=== PATIENT | female | born 1985 | race Caucasian/White ===

== ENCOUNTER 2019-03-11 16:24 | Observation (INO) ==
[~2019-03-11 16:24] MED LIST: LIDOCAINE W/ SODIUM BICARB 0.5 ML SYR SUBD PRN; Lactated Ringers 1,000 ML PRIMARY IV SCH; Nasal Sanitizer POPSWAB ampule 3 AMP (Nozin) PREOP DOSE ENOS SCH
[2019-03-11] MEDS ORDERED: Lactated Ringers 1,000 ML PRIMARY IV ONE (16:32)
[2019-03-11] MEDS ORDERED: LIDOCAINE W/ SODIUM BICARB 0.5 ML SYR ONE (16:33)
[2019-03-11] MEDS ORDERED: PROPOFOL 10 MG/1 ML (200 MG/20 ML) VIAL IV ONE (18:55)
[2019-03-11] MEDS: fentaNYL Inj 100 MCG/2 ML VIAL IVP PRN ×2 (19:51→20:12)
[2019-03-11] MEDS ORDERED: ONDANSETRON 4 MG/2 ML VIAL IVP ONE (20:25)
[2019-03-11] MEDS ORDERED: ACETAMINOPHEN 325 MG TABLET PO PRN (20:58)
[2019-03-11] MEDS ORDERED: CALCIUM CARBONATE 500 MG (TUMS) CHEWABLE TABLET PO PRN (20:58)
[2019-03-11] MEDS ORDERED: Prochlorperazine Tab 10 MG TAB PO PRN (20:58)
[2019-03-11] MEDS ORDERED: MAG HYDROX/AL HYDROX/SIMETH 30 ML SUSP PO PRN (20:58)
[2019-03-11] MEDS ORDERED: BISACODYL 10 MG SUPPOSITORY RECTAL PRN (20:58)
[2019-03-11] MEDS ORDERED: D5-1/2NS + 20mEq KCL 1,000 ML PRIMARY IV SCH (20:58)
[2019-03-11] MEDS ORDERED: MORPHINE SULFATE 2 MG/1 ML IVP PRN (20:58)
[2019-03-11] MEDS ORDERED: IBUPROFEN 400 MG TABLET PO PRN (20:58)
[2019-03-11] MEDS ORDERED: diphenhydrAMINE 25 MG CAPSULE PO PRN (20:58)
[2019-03-11] MEDS ORDERED: ONDANSETRON 4 MG/2 ML VIAL IVP PRN (20:58)
[2019-03-11] MEDS ORDERED: Ondansetron ODT Tab 8 MG TAB PO PRN (20:58)
[2019-03-11] MEDS ORDERED: BISACODYL 5 MG TABLET PO PRN (20:58)
[2019-03-11] MEDS ORDERED: LEVALBUTEROL HCL 1.25 MG/3 ML NEB PRN (21:08)
[2019-03-11 21:16] LABS: BASOPHILS # (AUTO) 0.01 10*3/UL; BASOPHILS % (AUTO) 0.1 % (0-1); EOSINOPHILS # (AUTO) 0.15 10*3/UL; EOSINOPHILS % (AUTO) 1.2 % (0-8); Hematocrit [HCT] 40.9 % (37.0-47.0); Hemoglobin [HGB] 13.3 g/dL (12.0-16.0); MEAN CORPUSCULAR HGB CONC 32.5 g/dL (33-37); MEAN CORPUSCULAR VOLUME 89.5 FL (81-99); MEAN PLATELET VOLUME 9.1 FL (7.4-12.2); MONOCYTES # (AUTO) 0.39 10*3/UL (0.3-0.8); NEUTROPHILS # (AUTO) 9.93 10*3/UL; RED BLOOD COUNT 4.57 10^6/uL (4.20-5.40)
[2019-03-11 21:17] LABS: PLATELET MORPHOLOGY COMMENT NORMAL MORPHOLOGY (NORM); RBC MORPHOLOGY COMMENT NORMAL MORPHOLOGY (NORM); WBC MORPHOLOGY COMMENT NORMAL MORPHOLOGY (NORM)
[2019-03-11 21:26] LABS: BLOOD UREA NITROGEN 8 mg/dL (7-22); BUN/CREATININE RATIO 11.42 (6-20)
[2019-03-11] MEDS ORDERED: MORPHINE SULFATE 4 MG/1 ML IVP PRN (21:26)
[2019-03-11] MEDS ORDERED: Ertapenem Inj 1 GM in Sodium Chloride 0.9% 100 ML IV SCH (21:30)
[2019-03-11] MEDS: HYDROcodone-APAP 7.5 MG-325 MG TABLET PO PRN (21:44)
[2019-03-12] MEDS: HYDROcodone-APAP 7.5 MG-325 MG TABLET PO PRN ×3 (01:29→11:42)
[2019-03-12 04:33] VITALS: BP 118/59; RESP 18; TEMP 97.1
[2019-03-12 06:27] LABS: BASOPHILS # (AUTO) 0.01 10*3/UL; BASOPHILS % (AUTO) 0.1 % (0-1); EOSINOPHILS # (AUTO) 0 10*3/UL; EOSINOPHILS % (AUTO) 0 % (0-8); Hematocrit [HCT] 39.6 % (37.0-47.0); Hemoglobin [HGB] 13.1 g/dL (12.0-16.0); LYMPHOCYTES # (AUTO) 0.97 10*3/uL; MEAN CORPUSCULAR HGB CONC 33.1 g/dL (33-37); MEAN PLATELET VOLUME 9.4 FL (7.4-12.2); MONOCYTES # (AUTO) 0.13 10*3/UL (0.3-0.8); MONOCYTES % (AUTO) 1.5 % (5-15); NEUTROPHILS # (AUTO) 7.71 10*3/UL; NEUTROPHILS % (AUTO) 87.3 % (50-80)
[2019-03-12 06:28] LABS: PLATELET MORPHOLOGY COMMENT NORMAL MORPHOLOGY (NORM); RBC MORPHOLOGY COMMENT NORMAL MORPHOLOGY (NORM); WBC MORPHOLOGY COMMENT NORMAL MORPHOLOGY (NORM)
[2019-03-12] MEDS ORDERED: ESCITALOPRAM 10 MG TABLET PO SCH (09:00)
[2019-03-12] MEDS ORDERED: ceFAZolin 1 GM VIAL IVP ONE (10:38)
[2019-03-12] MEDS ORDERED: ceFAZolin Inj 2gm (Premix) 2 GM/50 ML BAG IV ONE (10:45)
[2019-03-12 11:31] VITALS: O2SAT 95
== END 2019-03-12 12:07 | disposition home or self-care (01) ==
LOC: MED/SURG 16:24 → OR 16:24
PROVIDERS: ADMIT Internal Medicine; ATTEND Internal Medicine